=== PATIENT | male | born 1960 | race Caucasian/White ===

== ENCOUNTER 2025-07-29 10:01 | Day surgery (SDC) | payer MEDICARE, OTHER ==
[2025-07-29] MEDS: Lactated Ringers 1,000 ML IV SCH (10:45)
[2025-07-29] MEDS ORDERED: fentaNYL 50 MCG/ML SDV ONE (10:50)
[2025-07-29] MEDS ORDERED: Propofol 200 MG/20 ML SDV ONE ×2 (10:50)
[2025-07-29 12:02] VITALS: BP 105/67; PULSE 88
== END 2025-07-29 12:02 | disposition home or self-care (01) ==
LOC: CC.SDS 10:01
PROVIDERS: ATTEND Family Medicine
DX: Z12.11 Encounter for screening for malignant neoplasm of colon (principal); D12.2 Benign neoplasm of ascending colon; D12.5 Benign neoplasm of sigmoid colon; K57.30 Diverticulosis of large intestine without perforation or abscess without bleeding; Z88.5 Allergy status to narcotic agent
CPT/HCPCS: 00811; 45380; 45385; 88305; J2704; J3010; J7120